=== PATIENT | female | born 2000 | race African-American/Black ===

== ENCOUNTER 2023-03-15 12:01 | Emergency (ER) | payer BC ==
[~2023-03-15] VITALS: Ht 167.6 cm; Wt 63.5 kg
[2023-03-15 12:09] VITALS: BP 124/83
[2023-03-15 12:15] VITALS: BP 109/79
[2023-03-15 12:30] VITALS: BP 124/69
[2023-03-15 12:45] VITALS: BP 119/86
[2023-03-15] MEDS ORDERED: ZOFRAN4 MG/TAB PO (12:57)
[2023-03-15 13:00] VITALS: BP 124/85
== END 2023-03-15 13:09 | disposition home or self-care (01) | DRG 179 ==
LOC: ED 12:01
DX: U07.1 COVID-19 (principal); R05.9 Cough, unspecified; R52 Pain, unspecified; J02.9 Acute pharyngitis, unspecified; R68.83 Chills (without fever)